=== PATIENT | male | born 1955 | race Hispanic/Latino ===

== ENCOUNTER 2019-02-28 11:30 | Emergency (ER) | payer MEDICARE ==
[2019-02-28 11:53] VITALS: BP 129/71
--- NOTE | 2019-02-28 11:55 | Event Note ---
ED Screening Note ED Screening Note: cp similar to w CT has 3 stents sees [facility] heart This initial assessment/diagnostic orders/clinical plan/treatment(s) is/are subject to change based on patients health status, clinical progression and re- assessment by fellow clinical providers in the ED. Further treatment and workup at subsequent clinical providers discretion. Patient/guardian urged not to elope from the ED as their condition may be serious if not clinically assessed and managed. Initial orders include: ro acs
[2019-02-28 12:59] LABS: Basophils # (Auto) 0.1 K/mm3 (0.0-0.1); Basophils % (Auto) 1.1 % (0.0-1.8); Eosinophils # (Auto) 0.1 K/mm3 (0.0-0.4); Eosinophils % (Auto) 2.3 % (0.0-4.3); Hematocrit 38.7 % (35.5-45.6); Hemoglobin 13.6 gm/dl (11.8-15.2); Lymphocytes # (Auto) 0.9 K/mm3 (1.2-5.4); Lymphocytes % (Auto) 15.2 % (13.4-35.0); Mean Corpuscular HGB Conc 35 % (32-34); Mean Corpuscular Volume 88 fl (84-94); Monocytes # (Auto) 0.4 K/mm3 (0.0-0.8); Monocytes % (Auto) 7.2 % (0.0-7.3); Platelet Count 164 K/mm3 (140-440); Red Cell Distribution Width 14.5 % (13.2-15.2)
[2019-02-28 13:06] LABS: INR 1.02 (0.87-1.13)
--- NOTE | 2019-02-28 13:12 | XRay Report ---
CHEST 2 VIEWS INDICATION / CLINICAL INFORMATION: Chest Pain. COMPARISON: None available. FINDINGS: SUPPORT DEVICES: None. HEART / MEDIASTINUM: No significant abnormality. LUNGS / PLEURA: No significant pulmonary or pleural abnormality. No pneumothorax. ADDITIONAL FINDINGS: No significant additional findings. IMPRESSION: 1. No acute findings. Signer Name: Ethan Li MD Signed: 02/28/2019 1:08 PM Workstation Name: [id number]
[2019-02-28 13:24] LABS: Alanine Aminotransferase 24 units/L (7-56); Albumin 4.5 g/dL (3.9-5); BUN/Creatinine Ratio 20; Blood Urea Nitrogen 14 mg/dL (9-20); Calcium 9.6 mg/dL (8.4-10.2); Hemolysis Index 31
--- NOTE | 2019-02-28 15:16 | Emergency Department Report ---
ED Chest Pain HPI - General Chief Complaint: Chest Pain Stated Complaint: CHEST PAIN Time Seen by Provider: 02/28/19 11:51 Source: patient Mode of arrival: Ambulatory Limitations: No Limitations - History of Present Illness Initial Comments: This is a 63-year-old male presents ED complaining of mid chest pain. This started this morning. Patient states that pain is localized to his mid chest, constant in nature MD Complaint: chest pain - Related Data Home Medications Medication Instructions Recorded Confirmed Last Taken Amlodipine Besylate 10 mg PO 07/17/13 07/17/13 07/17/13 05:30 10mg Aspirin [Aspirin BABY CHEW TAB] 81 PO QDAY 07/17/13 07/17/13 07/17/13 05:30 81mg Clopidogrel Bisulfate [Clopidogrel] 75 mg PO DAILY 07/17/13 07/17/13 07/17/13 05:30 75mg Labetalol HCl 200 mg PO DAILY 07/17/13 07/17/13 07/17/13 05:30 200mg Olmesartan/Hydrochlorothiazide 40.25 mg PO 07/17/13 07/17/13 07/17/13 05:30 [Benicar HCT 40-25 mg] 40-25mg Potassium Chloride [Klor-Con M10] 10 meq PO 07/17/13 07/17/13 07/16/13 10:00 10mrq Sildenafil Citrate [Viagra] 100 mg PO PRN 07/17/13 07/17/13 07/10/13 22:00 50mg Simvastatin 40 mg PO DAILY 07/17/13 07/17/13 07/16/13 22:00 40mg Previous Rx's Medication Instructions Recorded Last Taken Type Naproxen [Naprosyn] 500 mg PO BID #30 tablet 02/28/19 Unknown Rx Allergies Allergy/AdvReac Type Severity Reaction Status Date / Time levofloxacin [From Levaquin] Allergy Rash Verified 02/28/19 11:32 Heart Score - HEART Score History: Slightly suspicious EKG: Normal Age: > 65 Risk factors: 1-2 risk factors Troponin: < normal limit HEART Score: 3 ED Review of Systems ROS: Stated complaint: CHEST PAIN Other details as noted in HPI Comment: All other systems reviewed and negative ED Past Medical Hx - Past Medical History Hx Hypertension: Yes Hx Congestive Heart Failure: No Hx Diabetes: Yes (diet controlled) Hx Asthma: No Hx COPD: No - Surgical History Hx Coronary Stent: Yes (2000, 2007) 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 - Social History Smoking Status: Never Smoker Substance Use Type: None - Medications Home Medications: Home Medications Medication Instructions Recorded Confirmed Last Taken Type Amlodipine Besylate 10 mg PO 07/17/13 07/17/13 07/17/13 05:30 History 10mg Aspirin [Aspirin BABY CHEW TAB] 81 PO QDAY 07/17/13 07/17/13 07/17/13 05:30 History 81mg Clopidogrel Bisulfate [Clopidogrel] 75 mg PO DAILY 07/17/13 07/17/13 07/17/13 05:30 History 75mg Labetalol HCl 200 mg PO DAILY 07/17/13 07/17/13 07/17/13 05:30 History 200mg Olmesartan/Hydrochlorothiazide 40.25 mg PO 07/17/13 07/17/13 07/17/13 05:30 History [Benicar HCT 40-25 mg] 40-25mg Potassium Chloride [Klor-Con M10] 10 meq PO 07/17/13 07/17/13 07/16/13 10:00 History 10mrq Sildenafil Citrate [Viagra] 100 mg PO PRN 07/17/13 07/17/13 07/10/13 22:00 History 50mg Simvastatin 40 mg PO DAILY 07/17/13 07/17/13 07/16/13 22:00 History 40mg Naproxen [Naprosyn] 500 mg PO BID #30 tablet 02/28/19 Unknown Rx ED Physical Exam - General Limitations: No Limitations General appearance: alert, in no apparent distress - Head Head exam: Present: atraumatic, normocephalic - Eye Eye exam: Present: normal appearance - ENT ENT exam: Present: mucous membranes moist - Neck Neck exam: Present: normal inspection, full ROM. Absent: tenderness, lymphadenopathy - Respiratory Respiratory exam: Present: normal lung sounds bilaterally. Absent: respiratory distress - Cardiovascular Cardiovascular Exam: Present: regular rate, normal rhythm. Absent: systolic murmur, diastolic murmur, rubs, gallop - GI/Abdominal GI/Abdominal exam: Present: soft, normal bowel sounds. Absent: distended, tenderness - Rectal Rectal exam: Present: deferred - Extremities Exam Extremities exam: Present: normal inspection - Back Exam Back exam: Present: normal inspection - Neurological Exam Neurological exam: Present: alert, oriented X3 - Psychiatric Psychiatric exam: Present: normal affect, normal mood - Skin Skin exam: Present: warm, dry, intact, normal color. Absent: rash ED Course Vital Signs 02/28/19 11:50 Temperature 98.4 F Pulse Rate 83 Respiratory 18 Rate Blood Pressure 129/71 O2 Sat by Pulse 96 Oximetry ELIJAH score - Elijah Score Age > 65: (1) Yes Aspirin use within the Past 7 Days: (1) Yes 3 or more CAD Risk Factors: (0) No 2 or more Angina events in past 24 hrs: (0) No Known CAD with more than 50% Stenosis: (0) No Elevated Cardiac Markers: (0) No ST Deviation Greater than 0.5mm: (0) No ELIJAH Score: 2 ED Medical Decision Making - Lab Data Result diagrams: 02/28/19 12:44 02/28/19 12:44 Laboratory Last Values WBC 6.1 K/mm3 (4.5-11.0) 02/28/19 12:44 RBC 4.40 M/mm3 (3.65-5.03) 02/28/19 12:44 Hgb 13.6 gm/dl (11.8-15.2) 02/28/19 12:44 Hct 38.7 % (35.5-45.6) 02/28/19 12:44 MCV 88 fl (84-94) 02/28/19 12:44 MCH 31 pg (28-32) 02/28/19 12:44 MCHC 35 % (32-34) H 02/28/19 12:44 RDW 14.5 % (13.2-15.2) 02/28/19 12:44 Plt Count 164 K/mm3 (140-440) 02/28/19 12:44 Lymph % (Auto) 15.2 % (13.4-35.0) 02/28/19 12:44 Gilliam % (Auto) 7.2 % (0.0-7.3) 02/28/19 12:44 Eos % (Auto) 2.3 % (0.0-4.3) 02/28/19 12:44 Baso % (Auto) 1.1 % (0.0-1.8) 02/28/19 12:44 Lymph # 0.9 K/mm3 (1.2-5.4) L 02/28/19 12:44 Gilliam # 0.4 K/mm3 (0.0-0.8) 02/28/19 12:44 Eos # 0.1 K/mm3 (0.0-0.4) 02/28/19 12:44 Baso # 0.1 K/mm3 (0.0-0.1) 02/28/19 12:44 Seg Neutrophils % 74.2 % (40.0-70.0) H 02/28/19 12:44 Seg Neutrophils # 4.6 K/mm3 (1.8-7.7) 02/28/19 12:44 PT 13.1 Sec. (12.2-14.9) 02/28/19 12:44 INR 1.02 (0.87-1.13) 02/28/19 12:44 APTT 23.0 Sec. (24.2-36.6) L 02/28/19 12:44 Sodium 141 mmol/L (137-145) 02/28/19 12:44 Potassium 3.9 mmol/L (3.6-5.0) 02/28/19 12:44 Chloride 102.7 mmol/L (98-107) 02/28/19 12:44 Carbon Dioxide 27 mmol/L (22-30) 02/28/19 12:44 15 mmol/L 02/28/19 12:44 BUN 14 mg/dL (9-20) 02/28/19 12:44 0.7 mg/dL (0.8-1.5) L 02/28/19 12:44 Estimated GFR > 60 ml/min 02/28/19 12:44 20 % 02/28/19 12:44 Glucose 115 mg/dL (75-100) H 02/28/19 12:44 Calcium 9.6 mg/dL (8.4-10.2) 02/28/19 12:44 0.40 mg/dL (0.1-1.2) 02/28/19 12:44 AST 19 units/L (5-40) 02/28/19 12:44 ALT 24 units/L (7-56) 02/28/19 12:44 52 units/L (35-129) 07/16/19 12:44 < 0.010 ng/mL (0.00-0.029) 02/28/19 12:44 NT-Pro-B Natriuret Pep 24.63 pg/mL (0-900) 02/28/19 12:44 6.8 g/dL (6.3-8.2) 02/28/19 12:44 4.5 g/dL (3.9-5) 02/28/19 12:44 2.0 % 02/28/19 12:44 - EKG Data EKG shows normal: sinus rhythm Rate: normal - Medical Decision Making 63-year-old male presents with atypical chest pain. All labs were within normal limits, negative troponin, negative BNP, negative EKG. Discussed the patient follow up with his primary care physician Dr. Elver Humphreys. Patient is in no acute distress. Patient INSTRUCTIONS GIVEN. DISCUSSED RESULT FINDINGS WITH THE PATIENT. VITAL SIGNS ARE NORMAL PATIENT IS IN NO ACUTE DISTRESS Critical care attestation.: If time is entered above; I have spent that time in minutes in the direct care of this critically ill patient, excluding procedure time. ED Disposition Clinical Impression: Atypical chest pain Disposition: DC-01 TO HOME OR SELFCARE Is pt being admited?: No Does the pt Need Aspirin: No Condition: Stable Instructions: Chest Pain (ED), Costochondritis (ED) Additional Instructions: Make sure to follow up with the primary care physician as discussed. Take all your medications as you've been prescribed. If you have any worsening symptoms or develop new symptoms please return to ED immediately. Prescriptions: Naproxen [Naprosyn] 500 mg PO BID #30 tablet Referrals: CHRISTIANE REYES MD [Primary Care Provider] - 3-5 Days Forms: Work/School Release Form(ED) Time of Disposition: 15:19
== END 2019-02-28 15:57 | disposition home or self-care (01) ==
LOC: ED 11:30
DX: R07.89 Other chest pain (principal); I10 Essential (primary) hypertension; E11.9 Type 2 diabetes mellitus without complications; Z88.8 Allergy status to other drugs, medicaments and biological substances; Z79.899 Other long term (current) drug therapy
CPT/HCPCS: 36415; 71046; 80053; 83880; 84484; 85025; 85610; 85730; 93005; 93010